=== PATIENT | female | born 1955 | race Caucasian/White ===

== ENCOUNTER 2020-03-31 12:21 | Outpatient (CLI) | payer MEDICARE, OTHER, SELFPAY ==
--- NOTE | ~2020-03-31 | MM_ITS ---
EXAMINATION: MM screening catrina BI w amadou HISTORY: Screening TECHNIQUE: Craniocaudal and mediolateral oblique 3-D tomosynthesis images were obtained and synthetic 2-D images were generated. CAD analysis was submitted and interpreted. COMPARISON: No prior mammogram is available for comparison at this institution. BREAST PARENCHYMAL COMPOSITION: There are scattered areas of fibroglandular density. FINDINGS: There is no evidence of suspicious mass, calcification, or architectural distortion to sugg est malignancy in either breast. There has been no suspicious interval change. IMPRESSION: 1. No mammographic evidence of malignancy. 2. Recommend routine screening mammography in one year. BI-RADS Category 1: Negative Reviewed, dictated and finalized at location A.
== END 2020-03-31 12:22 | disposition home or self-care (01) ==
LOC: ANHIMG 12:27
PROVIDERS: PCP Family Medicine; Visit Provider Obstetrics & Gynecology
DX: Z12.31 Encounter for screening mammogram for malignant neoplasm of breast (principal)
CPT/HCPCS: 77063; 77067

== ENCOUNTER 2021-04-16 09:45 | Outpatient (CLI) | payer MEDICARE, SELFPAY ==
[2021-04-16 11:42] LABS: SARS-CoV-2 RNA PCR Negative (Negative)
== END 2021-04-16 09:46 | disposition home or self-care (01) ==
LOC: CHSLAB 09:47
PROVIDERS: PCP Family Medicine; Visit Provider Family Medicine
DX: Z01.818 Encounter for other preprocedural examination (principal); Z20.822 Contact with and (suspected) exposure to COVID-19
CPT/HCPCS: C9803; U0003; U0005

== ENCOUNTER 2021-05-03 10:00 | Outpatient (CLI) | payer MEDICARE, SELFPAY ==
--- NOTE | ~2021-05-03 | MM_ITS ---
EXAMINATION: MM screening catrina BI w amadou HISTORY: Screening mammogram TECHNIQUE: Craniocaudal and mediolateral oblique 3-D tomosynthesis images were obtained and synthetic 2-D images were generated. CAD analysis was submitted and interpreted. COMPARISON: 03/31/2020, 03/14/2019, 03/14/2018 bilateral screening mammogram examinations BREAST PARENCHYMAL COMPOSITION: There are scattered areas of fibroglandular density. FINDINGS: There is no evidence of suspicious mass, calcification, or architectural distortion to sugg est malignancy in either breast. There has been no suspicious interval change. IMPRESSION: 1. No mammographic evidence of malignancy. 2. Recommend routine screening mammography in one year. BI-RADS Category 1: Negative Reviewed, dictated and finalized at location A. NEERING EQUIPMENT OPERATOR
== END 2021-05-03 10:01 | disposition home or self-care (01) ==
LOC: ANHIMG 10:03
PROVIDERS: PCP Family Medicine; Visit Provider Obstetrics & Gynecology
DX: Z12.31 Encounter for screening mammogram for malignant neoplasm of breast (principal)
CPT/HCPCS: 77063; 77067

== ENCOUNTER 2021-07-29 09:31 | Outpatient (CLI) | payer MEDICARE, SELFPAY ==
[2021-07-29 13:34] LABS: SARS-CoV-2 RNA PCR Negative (Negative)
== END 2021-07-29 09:32 | disposition home or self-care (01) ==
LOC: CHSLAB 09:34
PROVIDERS: PCP Family Medicine; Visit Provider Family Medicine
DX: Z01.818 Encounter for other preprocedural examination (principal); Z20.822 Contact with and (suspected) exposure to COVID-19
CPT/HCPCS: C9803; U0003; U0005

== ENCOUNTER 2022-07-18 09:58 | Outpatient (CLI) | payer MEDICARE, SELFPAY ==
--- NOTE | ~2022-07-18 | MM_ITS ---
EXAMINATION: MM screening catrina BI w amadou HISTORY: Screening mammogram TECHNIQUE: Craniocaudal and mediolateral oblique 3-D tomosynthesis images were obtained and synthetic 2-D images were generated. CAD analysis was submitted and interpreted. COMPARISON: No prior mammogram is available for comparison at this institution.. BREAST PARENCHYMAL COMPOSITION: There are scattered areas of fibroglandular density. FINDINGS: There is no evidence of suspicious mass, calcification, or architectural distortion to sugg est malignancy in either breast. There has been no suspicious interval change. IMPRESSION: 1. No mammographic evidence of malignancy. 2. Recommend routine screening mammography in one year. BI-RADS Category 1: Negative Reviewed, dictated and finalized at location A. PIPELINE OPERATOR
== END 2022-07-18 09:59 | disposition home or self-care (01) ==
PROVIDERS: PCP Family Medicine; Visit Provider Obstetrics & Gynecology
DX: Z12.31 Encounter for screening mammogram for malignant neoplasm of breast (principal)
CPT/HCPCS: 77063; 77067

== ENCOUNTER 2023-08-15 14:49 | Outpatient (CLI) | payer MEDICARE, SELFPAY ==
--- NOTE | ~2023-08-15 | MM_ITS ---
EXAMINATION: MM screening catrina BI w amadou HISTORY: Screening TECHNIQUE: Craniocaudal and mediolateral oblique 3-D tomosynthesis images were obtained and synthetic 2-D images were generated. CAD analysis was submitted and interpreted. COMPARISON: Comparison to multiple prior studies sequentially, with oldest reviewed study dated 03/12. BREAST PARENCHYMAL COMPOSITION: There are scattered areas of fibroglandular density. FINDINGS: There is no evidence of suspicious mass, calcification, or architectural distortion to sugg est malignancy in either breast. There has been no suspicious interval change. IMPRESSION: 1. No mammographic evidence of malignancy. 2. Recommend routine screening mammography in one year. BI-RADS Category 1: Negative Reviewed, dictated and finalized at location A. YARDIST
== END 2023-08-15 14:50 | disposition home or self-care (01) ==
LOC: ANHIMG 14:55
PROVIDERS: PCP Family Medicine; Visit Provider Obstetrics & Gynecology
DX: Z12.31 Encounter for screening mammogram for malignant neoplasm of breast (principal)
CPT/HCPCS: 77063; 77067

== ENCOUNTER 2023-09-18 08:58 | Outpatient (RCR) | payer MEDICARE, SELFPAY ==
--- NOTE | 2023-09-18 10:09 | OPREHPOC ---
Outpatient Therapy Plan of Care This is a Multidisciplinary Plan of Care that may contain components documented by all disciplines (PT, OT, and ST.) PT Problem 1 PT Problem #1 Knowledge Deficit PT Goal 1 Goal 1. independent and compliant with HEP PT Problem 2 PT Problem #2 Pain PT Goal 1 Goal 1. decrease pain at worst to 5/10 or less in the lower back Target Visit 12 PT Problem 3 PT Problem #3 Impaired Strength PT Goal 1 Goal 1. improve bilateral hip strength to 4+/5 or better 2. improve bilateral knee flexion to 5/5 3. hold bridge posture for 30 seconds or better Target Visit 12 PT Problem 4 PT Problem #4 Impaired Functional Mobil PT Goal 1 Goal 1. oswestry to display 30% or less functional deficits 2. patient to sleep through the night 4 nights a week without waking due to back pain 3. patient to tolerate standing and walking for 1 hour to improve exercise routine for general health and surgery preparation 4. patient to join an exercise class 3 days per week to maintain strength after end of therapy Target Visit 12
--- NOTE | 2023-09-18 10:09 | PTOPEVAL1 ---
Assessment and note entered by JT File, PT Evaluation Information Assessment Status Evaluation Diagnosis lumbago Onset 09/10/23 Subjective Information patient reports she has had 2 MRI's and 2 CT scans of the spine thus far. she reports she is going back for more xrays and additional CT's of the spine soon. she has had xrays of the spine showing DDD and and S curve scoliosis. she reports she has had talks with them about surgery on the lower back. she reports pain management told her there is nothing else they can do for her. she reports she has the most pain in the lower back. she reports she has increased pain with standing and movement. she reports changing positions frequently helps to reduce pain. she reports she is constantly trying to find a position with the least amount of pain. she reports she is constantly in pain. she reports her goals for therapy would be to hurt less. she reports she is trying to have surgery on the lower back and was told she has to try therapy first. patient reports at times she does have symptoms down the R LE. Reported Pain Level Pain Score 3: Self Report Assessment PT Clinical Summary mrs. hernandez is a 68 yo woman who presents to skilled PT services for evaluation and treatment of lower back pain. she presents today with deficits in posture, rom, strength, core stability, and hip flexibility. she also has pain with upright activities. her signs and symptoms are indicative of lumbar DDD. she is also complicated by a significant S curve scoliosis. continued skilled PT is indicated to improve her objective/ functional deficits and improve her quality of life/functional activity performance. patient is likely a candidate for surgery to the spine, and skilled PT will help improve her strength in the core and hips to prepare for recovery after surgery. Plan of Care Interventions Electrical Stimulation,Hot Pack/Cold Pack,Manual Therapy,Neuro Re-education,Patient/Caregiver Educati,Therapeutic Activities,Therapeutic Exercise PT Services Indicated Yes Treatment Frequency and 3x weekly for 12 visits Duration These treatments will address the objective and functional deficits as defined above. The patient will be advanced safely and appropriately in order for the patient to p
--- NOTE | 2023-10-01 13:39 | PCPTNOTE ---
patient called to cancel. no reason given
--- NOTE | 2023-10-12 13:02 | OPREHPOC ---
Outpatient Therapy Plan of Care This is a Multidisciplinary Plan of Care that may contain components documented by all disciplines (PT, OT, and ST.) PT Problem 1 PT Problem #1 Knowledge Deficit PT Goal 1 Goal 1. independent and compliant with HEP Progress Met PT Problem 2 PT Problem #2 Pain PT Goal 1 Goal 1. decrease pain at worst to 5/10 or less in the lower back Target Visit 12 Comment continue PT Problem 3 PT Problem #3 Impaired Strength PT Goal 1 Goal 1. improve bilateral hip strength to 4+/5 or better 2. improve bilateral knee flexion to 5/5 3. hold bridge posture for 30 seconds or better, met Target Visit 12 Progress Partially Met Comment continue PT Problem 4 PT Problem #4 Impaired Functional Mobil PT Goal 1 Goal 1. oswestry to display 30% or less functional deficits 2. patient to sleep through the night 4 nights a week without waking due to back pain, met 3. patient to tolerate standing and walking for 1 hour to improve exercise routine for general health and surgery preparation 4. patient to join an exercise class 3 days per week to maintain strength after end of therapy Target Visit 12 Progress Partially Met Comment 2. met
--- NOTE | 2023-10-12 13:03 | PTOPPROG ---
Assessment and note entered by Giselle Clarke DPT Evaluation Information Assessment Status Progress Diagnosis lumbago Onset 09/10/23 Subjective Information patient reports that since starting PT she has had some relief but is also taking gabapentin so she is unsure which is contributing. she reports she has seen a disaster recovery specialist who recommended L4-S1 fusion. she reports that standing is still her biggest pain source. she reports that she is able to stand for longer periods of time. she reports pain is off and on down the R leg. she would like to improve walking distance. Assessment PT Clinical Summary Mrs. Smith has been seen for 10 visits of skilled PT with good progression towards goals. She demonstrates improved LE strength and reports improved ability to sleep and stand for prolonged periods of time. She continues to report poor balance and difficulty walking prolonged distances . She would benefit from continued skilled PT to address remaining impairments and return to PLOF. Plan of Care Interventions Electrical Stimulation,Hot Pack/Cold Pack,Manual Therapy,Neuro Re-education,Patient/Caregiver Educati,Therapeutic Activities,Therapeutic Exercise PT Services Indicated Yes Treatment Frequency and continue with remaining 2 visits Duration These treatments will address the objective and functional deficits as defined above. The patient will be advanced safely and appropriately in order for the patient to progress towards his/her prior level of function. Additional exercises will be introduced and as well as a comprehensive home exercise program upon discharge, if needed, ?to ensure carryover of functional gains achieved in the clinic. This treatment plan has been reviewed and agreement upon by the patient.
--- NOTE | 2023-10-18 10:58 | OPREHPOC ---
Outpatient Therapy Plan of Care This is a Multidisciplinary Plan of Care that may contain components documented by all disciplines (PT, OT, and ST.) PT Problem 1 PT Problem #1 Knowledge Deficit PT Goal 1 Goal 1. independent and compliant with HEP Progress Met PT Problem 2 PT Problem #2 Pain PT Goal 1 Goal 1. decrease pain at worst to 5/10 or less in the lower back Target Visit 12 Progress Not Met Comment . PT Problem 3 PT Problem #3 Impaired Strength PT Goal 1 Goal 1. improve bilateral hip strength to 4+/5 or better 2. improve bilateral knee flexion to 5/5 3. hold bridge posture for 30 seconds or better, met Target Visit 12 Progress Not Met Comment . PT Problem 4 PT Problem #4 Impaired Functional Mobil PT Goal 1 Goal 1. oswestry to display 30% or less functional deficits, not met 2. patient to sleep through the night 4 nights a week without waking due to back pain, met 3. patient to tolerate standing and walking for 1 hour to improve exercise routine for general health and surgery preparation 4. patient to join an exercise class 3 days per week to maintain strength after end of therapy Target Visit 12 Progress Partially Met Comment .
--- NOTE | 2023-10-18 10:58 | PTOPDC ---
Assessment and note entered by Giselle Clarke DPT Evaluation Information Assessment Status Discharge Diagnosis lumbago Onset 09/10/23 Subjective Information patient reports she is scheduled for an injection in November. she reports standing and walking continue to be the biggest causes of pain. she reports pain is intermittently down her R LE. Reported Pain Level Pain Score 5: Self Report Assessment PT Clinical Summary Mrs. Smith attended 12 visits of skilled PT with progression towards goals but did not meet set goals. She demonstrates improved LE strength and compliance with HEP. She continues to demonstrate impaired lumbar ROM and reports pain with standing and walking at this time. Due to plateau in progress patient will be discharged at this time. Plan of Care PT Services Indicated No
== END 2023-10-18 11:18 | disposition home or self-care (01) ==
LOC: CHSPT 08:58
DX: M54.50 Low back pain, unspecified (principal)
CPT/HCPCS: 97014; 97110; 97112; 97140; 97161; G0283

== ENCOUNTER 2023-12-22 09:51 | Outpatient (CLI) | payer MEDICARE, SELFPAY ==
--- NOTE | ~2023-12-22 | MR_ITS ---
EXAMINATION: humerus RT wo con DATE: 12/22/2023 11:01 INDICATION: Right upper arm strain post pulling injury TECHNIQUE: Magnetic resonance imaging (MRI) of the right upper arm was performed without intravenous contrast. Sequences included axial, sagittal and coronal T1-weighted FSE and T2-weighted FS FSE. COMPARISON: None. FINDINGS: Bone alignment is normal. No fracture or pathologic marrow replacing process. Cystic change which cou ld be related to a suture anchor tract at the humeral head and the cephalad aspect of the intertuberc ular groove which could be related to either prior rotator cuff repair or bicipital tenodesis. Evalua tion at the glenohumeral joint is limited relative a standard shoulder MRI due to the larger field-of -view of imaging. There is attenuation of the long head biceps tendon with partial tear at the level of the intertubercular groove. There is severe edema and distal retraction of a portion of the proxim al biceps brachii muscle which represents one half of the muscular contribution to the long head eulalia ps tendon and likely associated with the torn portion of the tendon. There is mild to moderate osteoa rthritis at the glenohumeral joint with small to moderate size marginal osteophytes as well as subart icular cystlike change along the inferior rim of the glenoid. There is suggestion of a tear of the grady perior glenoid labrum. There is tendinopathy and suggestion of a likely partial rotator cuff tear at the distal supraspinatus tendon. Physiologic amount fluid at the glenohumeral joint. Large osteochond ral body such with a small amount of fluid at the deep subscapular recess. IMPRESSION: 1. Partial tear of the long head biceps tendon which appears attenuated the level of the intertubercu lar groove and with likely associated retraction and muscular edema of the associated portion of the muscle belly which comprises approximately one half the contribution to the long head tendon. 2. Cystic change potentially an related to a suture anchor tract at the cephalad aspect of the intert ubercular groove which could relate either rotator cuff tear or bicipital tenodesis. Correlate with s urgical history. 2. Mild to moderate glenohumeral osteoarthritis with likely tear of the superior glenoid labrum. 3. Tendinopathy and likely partial tear of the distal supraspinatus tendon however assessment is limi ruperto by the decreased resolution on the large [id number] of imaging. Reviewed, dictated and finalized at location A. IMPRESSION: 1. Partial tear of the long head biceps tendon which appears attenuated the lev el of the intertubercular groove and with likely associated retraction and musc ular edema of the associated portion of the muscle belly which comprises approx imately one half the contribution to the long head tendon. 2. Cystic change potentially an related to a suture anchor tract at the cephala d aspect of the intertubercular groove which could relate either rotator cuff t ear or bicipital tenodesis. Correlate with surgical history. 2. Mild to moderate glenohumeral osteoarthritis with likely tear of the superio r glenoid labrum. 3. Tendinopathy and likely partial tear of the distal supraspinatus tendon rudolph ean assessment is limited by the decreased resolution on the large [id number] w of imaging.
== END 2023-12-22 09:52 | disposition home or self-care (01) ==
LOC: CHSIMG 09:54
PROVIDERS: PCP Family Medicine; Visit Provider Physician Assistant
DX: S46.211A Strain of muscle, fascia and tendon of other parts of biceps, right arm, initial encounter (principal); M19.011 Primary osteoarthritis, right shoulder
CPT/HCPCS: 73218

== ENCOUNTER 2024-09-22 09:38 | Outpatient (CLI) | payer MEDICARE, SELFPAY ==
--- NOTE | ~2024-09-22 | MM_ITS ---
EXAMINATION: MM screening [facility] BI w amadou HISTORY: Screening TECHNIQUE: Craniocaudal and mediolateral oblique 3-D tomosynthesis images were obtained and synthetic 2-D images were generated. CAD analysis was submitted and interpreted. COMPARISON: Comparison to multiple prior studies sequentially, with oldest reviewed study dated 03/14. BREAST PARENCHYMAL COMPOSITION: Not dense: There are scattered areas of fibroglandular density. FINDINGS: There is a small intramammary lymph node in the upper outer quadrant of the left breast, mi ddle depth. There is no evidence of suspicious mass, calcification, or architectural distortion to grady ggest malignancy in either breast. There has been no suspicious interval change. IMPRESSION: 1. No mammographic evidence of malignancy. 2. Recommend routine screening mammography in one year. BI-RADS Category 1: Negative Reviewed, dictated and finalized at location A.
--- OUTSIDE RECORDS SUMMARY | 2024-09-22 10:31 | XMS_ITS | Referral Summary ---
Author Organization [facility] Address [address] [place] [address] Care Team Providers Care Farmworker [employer] Name Role Phone Jadon Hines MD Primary Care Provider Allergies No known active allergies Medications albuterol HFA (PROVENTIL HFA,VENTOLIN HFA,PROAIR HFA) 90 mcg/actuation inhaler Inhale 2 puffs every 8 (eight) hours as needed 0 Active atorvastatin (LIPITOR) 40 mg tablet Take 1 tablet (40 mg total) by mouth daily 3 Active Restasis 0.05 % ophthalmic emulsion Administer 1 drop into both eyes every 12 (twelve) hours [address] (CYMBALTA) 60 mg capsule Take 1 capsule (60 mg total) by mouth daily 9 Active famotidine (PEPCID) 40 mg tablet Take 1 tablet (40 mg total) by mouth daily 0 Active gabapentin (NEURONTIN) 100 mg capsule Take 1 capsule (100 mg total) by mouth 3 (three) times a day 4 Active levothyroxine (SYNTHROID) 25 mcg tablet Take 1 tablet (25 mcg total) by mouth shot packer before breakfast 3 Active lisinopriL (PRINIVIL,ZESTR IL) 5 mg tablet Take 1 tablet (5 mg total) by mouth daily 2 Active meloxicam (MOBIC) 15 mg tablet Take 1 tablet (15 mg total) by mouth daily 4 Active Ozempic 2 mg/dose (8 mg/3 mL) pen injector injection Inject 2 mg under the skin once a week 4 Active SUMAtriptan (IMITREX) 50 mg tablet Take 1 tablet (50 mg total) by mouth once as needed for migraine 3 Active zolpidem CR (AMBIEN CR) 12.5 mg CR tablet Take 1 tablet (12.5 mg total) by mouth nightly as needed 7 Active HYDROcodone-colby taminophen (NORCO) 5-325 mg per tablet Take 1 tablet by mouth Twice a day as needed 0 4 Active OneTouch Ultra Test strip 2 Active amoxicillin 500 mg capsule Take 1 tablet/capsule (500 mg total) by mouth 4 Active Active Problems Problem Noted Date Diagnosed Date Sleep apnea, unspecified 09/17/2022 Primary osteoarthritis of left knee 05/10/2022 Primary osteoarthritis of right knee 07/25/2019 Status post total replacement of left hip 2017 Hip arthritis 07/17/2017 Hammer toe 09/27/2011 Metatarsalgia 09/27/2011 Valgus deformity of great toe 09/27/2011 Pain of foot 09/19/2011 Social History Tobacco Use Types Packs/Day Years Used Date Smoking Tobacco: Former Tobacco Cessation:Counseling Given: Not Answered AUDIT-C Answer Date Recorded Q1: How often do you have a drink containing alc ohol? Monthly or less 06/10/2024 Q2: How many drinks containi ng alcohol do you have on a typical day when you are drinking? 1 or 2 06/10/2024 Q3: How often do you have si x or more drinks on one occasion? Never 06/10/2024 Hunger Vital Sign Answer Date Recorded Within the past 12 months, y ou worried that your food would run out before you got the money to buy more. Never true 12/05/19 24 Within the past 12 months, t he food you bought just didn't last and you didn't have money to get more. Never true 12/05/2023 Comments No Sex and Gender Information Value Date Recorded Sex Assigned at Not on file Legal Sex Female 4:06 AM QUALITY AUDITOR Gender Identity Not on file Sexual Orientation Not on file Last Filed Vital Signs Vital Sign Reading Time Taken Comments Blood Pressure 121/80 06/10/2024 1:57 PM QUALITY AUDITOR Pulse 66 06/10/2024 1:57 PM QUALITY AUDITOR Temperature 36.5 C (97.7 F) 06/10/2024 12:25 PM QUALITY AUDITOR Respiratory Rate 15 06/10/2024 1:57 PM QUALITY AUDITOR Oxygen Saturation 100% 06/10/2024 1:57 PM QUALITY AUDITOR Inhaled Oxygen Concentration - - Weight 77.5 kg (170 lb 12.8 oz) 024 12:25 PM QUALITY AUDITOR Height 162.6 cm (5' 4 ) 06/10/2024 12:2 5 PM QUALITY AUDITOR Body Mass Index 29.32 06/10/2024 12:25 PM QUALITY AUDITOR Plan of Treatment Not on file Goals Goal Patient Goal Type Associated Problems Recent Progress Patient-Stated? Author CCM Chronic Pain Care Plan Chronic Care Management Worsening( 12:32 PM QUALITY AUDITOR) Kate Shah, RN Note: Problem: Chronic Pain Goals: 1. Minimize further functional decline 2. Maximize quality of life 3. Control pain Strategies: - Activity/exercise program recommendation - Conservative stepwise pain medicine strategy with multi-disciplinary approach - Recommend healthy lifestyle strategies and compensatory methods as needed Insurance [facility] MEDICARE [facility] MEDIC[facility] Care Teams [employer] Relationship Specialty Start Date End Date Jadon Hines MD [address] [place] [id number] PCP - General Family Medicine 09/10/23
--- OUTSIDE RECORDS SUMMARY | 2024-09-22 10:31 | XMS_ITS | Clinical Summary ---
Author Organization [facility] Address [address] [place] [address] Care Team Providers Care Heading Maker Name Role Phone Jadon Resendiz MD Primary Care Provider [phone] Allergies No known active allergies Medications albuterol sulfate HFA 108 (90 Base) MCG/ACT inhaler 09/12/2022 Act silvano atorvastatin (LIPITOR) 40 MG tablet 07/11/2022 Active RESTASIS 0.05 % ophthalmic emulsion 07/28/2022 Active DULoxetine (CYMBALTA) 60 MG capsule 07/08/2022 Active famotidine (PEPCID) 40 MG tablet 09/12/2022 Active levothyroxine (SYNTHROID) 25 MCG tablet 09/12/2022 Active lisinopril (PRINIVIL) 5 MG tablet 03/10/2022 Active meloxicam (MOBIC) 15 MG tablet 09/12/2022 Active oxyCODONE immediate release (ROXICODONE) 10 MG immediate release tablet 09/15/2022 Active OZEMPIC 1 mg/dose injection (PEN) 08/30/2022 Act silvano SUMAtriptan (IMITREX) 50 MG tablet 09/12/2022 Active zolpidem CR (AMBIEN CR) 12.5 MG tablet 09/15/2022 Active Active Problems No known active problems Social History Tobacco Use Types Packs/Day Years Used Date Smoking Tobacco: Never Smokeless Tobacco: Never Tobacco Cessation:Counseling Given: Not Answered Comments Unknown Sex and Gender Information Value Date Recorded Sex Assigned at Not on file Legal Sex Female 5:48 PM SHEAR HELPER Gender Identity Not on file Sexual Orientation Not on file Last Filed Vital Signs Vital Sign Reading Time Taken Comments Blood Pressure 117/82 09/18/2022 12:20 PM CDT Pulse 110 09/18/2022 12:20 PM CDT Temperature 36.4 C (97.6 F) 09/18/2022 12:20 PM CDT Respiratory Rate 18 09/18/2022 12:20 PM CDT Oxygen Saturation 100% 09/18/2022 12:20 PM CDT Inhaled Oxygen Concentration - - Weight 76 kg (167 lb 8.8 oz) 09/18/2022 12:20 PM CDT Height 165.1 cm (5' 5 ) 09/18/2022 12:20 PM CDT Body Mass Index 27.88 09/18/2022 12:20 PM CDT Plan of Treatment Health Maintenance Due Date Last Done Comments Colorectal Cancer Screening Colonoscopy (10 Years) 1954 Hepatitis C 1972 DTaP, Tdap and Td Vaccines ( 1 - Tdap) 1973 Mammogram Screening 1994 Annual Medicare Wellness Visit 2019 Pneumococcal Vaccine: 65+ Years (2 of 2 - PPSV23 or PCV20) 04/09/2020 04/09/2019 COVID-19 Vaccine (4 - 2023-2 5 season) 2024 03/22/2021, 09/08/2020, 2020 RSV Immunization or 60+ Years (1 - 1-dose 75+ series) 2029 Zoster Vaccines Completed 06/09/2019, 04/09/2019 Dexa Scan (General) Completed 06/20/2023, 05/09/2021 Meningococcal B Vaccine Aged Out No l onger eligible based on patient's age to complete this topic Meningococcal Vaccine Aged Out No wang cara eligible based on patient's age to complete this topic RSV Immunizations Under 20 Months Aged Out No longer eligible b ased on patient's age to complete this topic Procedures Procedure Name Priority Date/Time Associated Diagnosis Comments BONE DENSITY/DEXA Routine 06/20/2023 1:4 0 PM SHEAR HELPER Postmenopausal from Last 3 Months or Most Recently Relevant to Health Maintenance Results * BONE DENSITY/DEXA (06/20/2023 1:40 PM SHEAR HELPER) Anatomical Region Laterality Modality Bone Bone Density 06/20/2023 3:28 PM SHEAR HELPER Impressions 06/20/2023 3:30 PM SHEAR HELPER Impression: BMD measured at AP lumbar spine, right total hip and right femoral neck all at WHO category level of normal. Ordered By: JADON RESENDIZ Interpreted By: Jarrell Pena MD, 06/20/2023 3:28 PM Narrative 06/20/2023 3:30 PM SHEAR HELPER Examination: DEXA Bone densitometry EXAM DATE: 06/20/2023 1:25 PM Clinical history: Postmenopausal. Prior left hip replacement. Vitamin D use. Calcium supplementation. Prior hysterectomy and hormone replacement therapy. Screening for osteoporosis. Technique: DEXA bone minimal density evaluation was performed in the AP projection over the lumbar spine and over both hips in the AP projection utilizing standard imaging techniques. Assessment: The BMD measured at the AP spine L1-L4 is 1.551 g/cm2 with a T-score of 4.6 and a Z-Score of 6.6. Bone density is up to 10% below young normal. This patient is considered normal according to the World Health Organization (WHO) criteria. Fracture risk is low. The BMD measured at the AP lumbar spine has increased 0.090 g/sq cm since study 05/09/2021. The BMD measured at the femur total right is 0.964 g/cm2 with a T-score of 0.2 and aZ-Score of 1.6. Bone density is up to 10% below young normal. This patient is considered normal according to the World Health Organization (WHO) criteria. Fracture risk is low. The BMD measured at the right total hip has increased 0.040 g/sq cm since study 05/09/2021. The BMD measured at the right femoral neck is 0.874 g/sq cm resulting in a T score of 0.2 and a Z score of 2.0, values at the WHO category level of normal. FRAX results: 10 year probability of major osteoporotic fracture 6.8% and of hip fracture 0.3%. Recommendations: All patients should ensure an adequate intake of dietary calcium and vitamin D. The NOF recommend adults under the age of 50 need 1000 mg of calcium and 400-800 IU of vitamin D daily. Effective therapy for the prevention and treatment of osteoporosis include biphosphonates. Follow-up: People with diagnosed cases of osteoporosis or at high risk for fracture should have regular bone mineral density test. For patients eligible for Medicare, routine testing is allowed once every 2 years. Testing frequency can be increased to one year for patients who have rapidly progressing disease, those who are receiving or discontinuing medical therapy to restore bone mass, or have additional risk factors. Based on these results, a followup exam is recommended in no earlier than 2 years. Procedure Note Jarrell Pena MD - 06/20/2023 Examination: DEXA Bone densitometry EXAM DATE: 06/20/2023 1:25 PM Clinical history: Postmenopausal. Prior left hip replacement. Vitamin Duse. Calcium supplementation. Prior hysterectomy and hormone replacementtherapy. Screening for osteoporosis. Technique: DEXA bone minimal density evaluation was performed in the APprojection over the lumbar spine and over both hips in the AP projectionutilizing standard imaging techniques. Assessment: The BMD measured at the AP spine L1-L4 is 1.551 g/cm2 with a T-score of4.6 and a Z-Score of 6.6. Bone density is up to 10% below young normal.This patient is considered normal according to the World HealthOrganization (WHO) criteria. Fracture risk is low. The BMD measured at the AP lumbar spine has increased 0.090 g/sq cm sincestudy 05/09/2021. The BMD measured at the femur total right is 0.964 g/cm2 with a T-score of0.2 and aZ-Score of 1.6. Bone density is up to 10% below young normal.This patient is considered normal according to the World HealthOrganization (WHO) criteria. Fracture risk is low. The BMD measured at the right total hip has increased 0.040 g/sq cm sincestudy 05/09/2021. The BMD measured at the right femoral neck is 0.874 g/sq cm resulting in aT score of 0.2 and a Z score of 2.0, values at the WHO category level ofnormal. FRAX results: 10 year probability of major osteoporotic fracture 6.8% andof hip fracture 0.3%. Recommendations: All patients should ensure an adequate intake of dietary calcium andvitamin D. The NOF recommend adults under the age of 50 need 1000 mg ofcalcium and 400-800 IU of vitamin D daily. Effective therapy for theprevention and treatment of osteoporosis include biphosphonates. Follow-up: People with diagnosed cases of osteoporosis or at high risk for fractureshould have regular bone mineral density test. For patients eligible forMedicare, routine testing is allowed once every 2 years. Testing frequencycan be increased to one year for patients who have rapidly progressingdisease, those who are receiving or discontinuing medical therapy torestore bone mass, or have additional risk factors. Based on these results, a followup exam is recommended in no earlier than2 years. Impression: BMD measured at AP lumbar spine, right total hip and right femoral neckall at WHO category level of normal. Ordered By: JADON RESENDIZ Interpreted By: Jarrell Pena MD, 06/20/2023 3:28 PM Jadon Resendiz MD DEXA Final Resul t from Last 3 Months or Most Recently Relevant to Health Maintenance Insurance [employer] Care Teams Heading Maker Relationship Specialty Start Date End Date Jadon Resendiz MD [address] [place] [phone] PCP - General FAMILY PRACTICE 03/30/21
--- OUTSIDE RECORDS SUMMARY | 2024-09-22 10:32 | XMS_ITS | Clinical Summary ---
Author Organization [facility] Address [address] [place] [address] Care Team Providers Care Business Reporting Developer Name Role Phone Jadon Hines MD Primary [...] 1 tablet (25 mcg total) by mouth direct chill casting operator before breakfast 3 Active lisinopriL (PRINIVIL,ZESTR [place]) [...] great toe 09/27/2011 Pain of foot 09/19/2011 Surgical History Surgery Date Site/Laterality Comments JOINT REPLACEMENT HIP SURGERY Medical History Medical History Date Comments Arthritis Diabetes mellitus (HCC) Gastric reflux Headache Migraines Osteoarthritis Scoliosis Sleep apnea Family History Medical History Relation Name Comments Gout Brother Diabetes Father Diabetes Mother Stroke Mother Spondylolisthesis Son Relation Name Status Comments Brother Father Mother Son Social History Tobacco Use Types Packs/Day Years [...] on file Legal Sex Female 4:06 AM SUPERVISOR DRY CLEANING Gender Identity Not on file Sexual Orientation Not on file Obstetrics History Last Filed Vital Signs Vital Sign Reading Time Taken Comments Blood Pressure 121/80 06/10/2024 1:57 PM SUPERVISOR DRY CLEANING Pulse 66 06/10/2024 1:57 PM SUPERVISOR DRY CLEANING Temperature 36.5 C (97.7 F) 06/10/2024 12:25 PM SUPERVISOR DRY CLEANING Respiratory Rate 15 06/10/2024 1:57 PM SUPERVISOR DRY CLEANING Oxygen Saturation 100% 06/10/2024 1:57 PM SUPERVISOR DRY CLEANING Inhaled Oxygen Concentration - - Weight 77.5 kg (170 lb 12.8 oz) 024 12:25 PM SUPERVISOR DRY CLEANING Height 162.6 cm (5' 4 ) 06/10/2024 12:2 5 PM SUPERVISOR DRY CLEANING Body Mass Index 29.32 06/10/2024 12:25 PM SUPERVISOR DRY CLEANING Plan of Treatment Health Maintenance Due Date Last Done Comments Breast Cancer Screening-Mammogram 1954 Colon Cancer Screening-Colonoscopy 1954 Depression Screening 1954 Fall Risk Assessment 1954 Hepatitis C Screening 1954 DTaP/Tdap/Td Vaccine (1 - Tdap) 1965 Hepatitis B Screening 1972 Well Visit 65+ 2019 Covid-19 Vaccine (2023-2 5 season) 2024 06/09/2023, 12/08/2022, 04/29/2022, Additional history exists Influenza Vaccine (#1) 2024 , 03/02/2022, 03/10/2021, Additional history exists Osteoporosis Screening-Bone Density Scan 06/20/2025 06/20/2023 Zoster Vaccine Completed 06/09/2019, 04/09/2019 Pneumococcal vaccine 65+ Completed 05/17/2020, 03/25 Goals Goal Patient Goal Type Associated Problems Recent Progress Patient-Stated? Author CCM Chronic Pain Care Plan Chronic Care Management Worsening( 12:32 PM SUPERVISOR DRY CLEANING) No Kate Haque RN Note: Problem: Chronic Pain Goals: 1. Minimize further functional decline 2. Maximize quality of life 3. Control pain Strategies: - Activity/exercise program recommendation - Conservative stepwise pain medicine strategy with multi-disciplinary approach - Recommend healthy lifestyle strategies and compensatory methods as needed Insurance [employer] MEDICARE A[employer] MEDICARE Care Teams Business Reporting Developer Relationship Specialty Start Date End Date Jadon Hines MD [address] [place] [id number] PCP - General Family Medicine 09/10/23
== END 2024-09-22 09:39 | disposition home or self-care (01) ==
LOC: ANHIMG 09:40
PROVIDERS: PCP Family Medicine; Visit Provider Obstetrics & Gynecology
DX: Z12.31 Encounter for screening mammogram for malignant neoplasm of breast (principal)
CPT/HCPCS: 77063; 77067